=== PATIENT | male | born 1995 | race Caucasian/White ===

== ENCOUNTER 2022-01-29 22:52 | Emergency (ER) | payer SELFPAY ==
[2022-01-29 23:41] VITALS: BP 144/90; PULSE 84; RESP 16; TEMP 36.7; O2SAT 99; BMI 36.9
--- NOTE | 2022-01-30 | CT_ITS ---
PROCEDURE INFORMATION: Exam: CT Abdomen And Pelvis With Contrast Exam date and time: 01/30/2022 12:40 AM Age: 26 years old Clinical indication: Other: Gi bleeding TECHNIQUE: Imaging protocol: Computed tomography of the abdomen and pelvis with contrast. Radiation optimization: All CT scans at this facility use at least one of these dose optimization techniques: automated exposure control; mA and/or kV adjustment per patient size (includes targeted exams where dose is matched to clinical indication); or iterative reconstruction. Contrast material: ISOVUE; Contrast volume: 75 ml; Contrast route: IV; COMPARISON: No relevant prior studies available. FINDINGS: Liver: Hepatic steatosis. Gallbladder and bile ducts: Contracted gallbladder. Pancreas: Normal. No ductal dilation. Spleen: Normal. No splenomegaly. 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 Kidneys and ureters: Normal. No hydronephrosis. Stomach and bowel: Mild small bowel feces suggesting slow motility. Appendix: Unremarkable appendix. Intraperitoneal space: Unremarkable. No free air. No significant fluid collection. Vasculature: Unremarkable. No abdominal aortic aneurysm. Lymph nodes: Unremarkable. No enlarged lymph nodes. Urinary bladder: Unremarkable as visualized. Reproductive: Unremarkable as visualized. Bones/joints: Unremarkable. No acute fracture. Soft tissues: Unremarkable. IMPRESSION: 1. No acute findings. 2. Hepatic steatosis.
[2022-01-30 00:07] LABS: Microscopic, Urine URINE MICROSCOPIC (MICROSCOPIC)
[2022-01-30 00:08] LABS: Basophils # 0.1 K/mm3 (0-0.2); Basophils % 0.8 % (0.1-2.0); Eosinophils # 0.3 K/mm3 (0.0-0.4); Eosinophils % 4.1 % (0.1-12.0); Hematocrit 47.4 % (42.0-52.0); Hemoglobin 14.9 g/dL (14.1-18.0); Lymphocytes # 2.1 K/mm3 (0.7-4.5); Lymphocytes % 29.3 % (10-50); Mean Corpuscular HGB Conc 31.5 g/dL (31.8-35.4); Mean Corpuscular Hemoglobin 29.2 pg (27.0-31.2); Mean Corpuscular Volume 92.8 fl (80-94); Mean Platelet Volume 7.7 fl (7.4-10.4); Monocytes # 0.6 K/mm3 (0.1-1.0); Monocytes % 7.9 % (1.7-9.3); Neutrophils # 4.1 K/mm3 (1.8-7.8); Neutrophils % 57.9 % (37.0-80.0); Platelet Count 317 K/mm3 (142-424); Red Blood Count 5.11 M/mm3 (4.60-6.20); Red Cell Distribution Width 13.6 % (11.5-17.5); White Blood Count 7.1 K/mm3 (4.8-10.8)
[2022-01-30 00:15] LABS: Appearance,Urine CLEAR (Clear); Bilirubin,Urine Negative (Negative); Blood, Urine Negative (Negative); Color,Urine YELLOW (Yellow); Glucose,Urine (UA) Negative (Negative); Ketones,Urine Negative (Negative); Leukocyte Esterase,Urine Negative (Negative); Nitrate,Urine Negative (Negative); Protein,Urine Negative (Negative); Specific Gravity, Urine 1.025 (1.005-1.030); Urobilinogen,Urine 0.2 EU/dl (0.2)
[2022-01-30 00:26] LABS: Occult Blood,Stool Positive (Negative)
[2022-01-30 00:35] LABS: Mucus,Urine 1+ /lpf; WBC,Urine Occasional #/hpf (0-3)
[2022-01-30 00:36] LABS: Squamous Epithelial Cell,Urine Occasional #/hpf (0-5)
[2022-01-30 00:49] LABS: Alanine Aminotransferase 47 U/L (12-78); Albumin Level 4.4 g/dl (3.5-5.0); Albumin/Globulin Ratio 1.5 (1.1-1.8); Alkaline Phosphatase 83 U/L (38-126); Anion Gap 13.9 mEq/L (5-15); Aspartate Amino Transferase 33 U/L (17-59); Blood Urea Nitrogen 12 mg/dl (9-20); Calcium 9.1 mg/dl (8.4-10.2); Carbon Dioxide 26 mmol/L (22.0-30.0); Chloride 103 mmol/L (98-107); Creatinine Clearance Estimated 238 mL/min (50-200); Estimated Glomerular Filt Rate 117 ml/min (>60); GFR (African American) 141 ML/MIN (>60); Glucose 131 mg/dl (74-100); Potassium 3.9 mmoL/L (3.5-5.1); Sodium 139 mmol/L (136-145); Total Protein,Serum 7.4 g/dl (6.3-8.2)
[2022-01-30 00:50] LABS: Bilirubin,Total < 0.1 mg/dl (0.2-1.3)
[2022-01-30 01:01] VITALS: BP 112/65; PULSE 77; RESP 16; O2SAT 97
[2022-01-30 01:31] VITALS: BP 122/66; PULSE 72; RESP 16; O2SAT 97
--- NOTE | 2022-01-30 01:50 | PC.NURSE ---
Pt updated on POC. NO needs or complaints voiced.
[2022-01-30 02:01] VITALS: BP 130/69; PULSE 82; O2SAT 96
--- NOTE | 2022-01-30 02:21 | [facility].EDABDPAI ---
Discharge Plan Disposition Patient Disposition: Home, Self-Care Chief Complaint: Abdominal Pain Prescriptions Prescriptions: New cephalexin [cephalexin] 500 mg capsule 500 mg PO TID Qty: 30 0RF Referrals Referrals: Provider,Referral, MD [Primary Care Provider] - Enter time for follow up Clinical Impressions Clinical Impression: Acute hemorrhoid Instructions Patient Instructions: Hemorrhoids, DI for Acute Abdominal Pain Discharge ED Provider: Kameron Vides Abdominal Pain HPI General Chief Complaint: Abdominal Pain Stated Complaint: Dark red blood and clots in stool X's 3 days Time Seen by Provider: 01/30/22 02:21 Mode of Arrival: Ambulatory Source of Information: Patient and Medical Record Limitations: No Limitations Description of Symptoms (Recalled from ER Triage Doc. by RN): PT REPORTS BLOODY STOOLS X 3 DAYS History of Present Illness HPI narrative: painful rectal area with brrb - no fever complaint: abdominal pain Onset (ago): day(s) Consistency: intermittent Severity: moderate Quality: sharp Associated symptoms: hematochezia Related Data Previous Rx's Medication Instructions Recorded cephalexin 500 mg capsule 500 mg PO TID #30 caps 01/30/22 Allergies Allergy/AdvReac Type Severity Reaction Status Date / Time No Known Allergies Allergy Verified 01/29/22 23:51 PFSH PFSH Social History Smoking Status: Current some day smoker alcohol intake: never current occupational status: employed ROS Obtained: Yes Systems reviewed as appropriate & no additional complaints except as documented Gastrointestinal Gastrointestingal: Reports as per HPI and hematochezia Physical Exam General General appearance: alert Head Head exam: normocephalic Eye Eye exam: Present PERRL and EOMI ENT ENT exam: Present normal oropharynx Neck Neck exam: Present normal inspection and full ROM Respiratory Respiratory exam: Present normal lung sounds bilaterally Cardiovascular Cardiovascular exam: Present regular rate Abdominal Exam Abdominal exam: Present soft and tenderness Rectal Exam Rectal exam: Present heme (+) stool, hemorrhoids and other (some cryptitis ) Neurological Exam Neurological exam: Present alert, oriented X3 and CN II-XII intact Psychiatric Psychiatric exam: Present normal affect Skin Skin exam: Absent rash Medical Decision Making Medical Records Medical records reviewed: Yes I reviewed the patient's medical records. Alfred Inquiry Pt receiving controlled substance: No Vital Signs: 01/29/22 23:41 01/30/22 01:01 01/30/22 01:31 Temperature 98.1 F Temperature Source Oral Pulse Rate 77 72 Pulse Rate [Left Radial] 84 Respiratory Rate 16 16 16 Blood Pressure 112/65 122/66 Blood Pressure [Right Arm] 144/90 H Blood Pressure Mean 81 85 Blood Pressure Mean [Right Arm] 108 Blood Pressure Source [Right Arm] Automatic Cuff Blood Pressure Position [Right Arm] Sitting 02 Sat by Pulse Oximetry 99 97 97 Oxygen Delivery Method Room Air 01/30/22 02:01 01/30/22 02:34 01/30/22 02:34 Temperature 98.1 F Temperature Source Oral Pulse Rate 82 83 Pulse Rate [Left Radial] Respiratory Rate 16 Blood Pressure 130/69 119/74 Blood Pressure [Right Arm] Blood Pressure Mean 86 Blood Pressure Mean [Right Arm] Blood Pressure Source [Right Arm] Blood Pressure Position [Right Arm] 02 Sat by Pulse Oximetry 96 Oxygen Delivery Method Room Air Room Air Lab Data Lab results reviewed: Yes I reviewed the patient's lab results. Lab Results 01/29/22 23:57: WBC 7.1, RBC 5.11, Hgb 14.9, Hct 47.4, MCV 92.8, MCH 29.2, MCHC 31.5 L, RDW 13.6, Plt Count 317, MPV 7.7, Neut % (Auto) 57.9, Lymph % (Auto) 29.3, Vernon % (Auto) 7.9, Eos % (Auto) 4.1, Baso % (Auto) 0.8, Neut # (Auto) 4.1, Lymph # (Auto) 2.1, Vernon # (Auto) 0.6, Eos # (Auto) 0.3, Baso # (Auto) 0.1 01/29/22 23:57: Sodium 139, Potassium 3.9, Chloride 103, Carbon Dioxide 26, Anion Gap 13.9, BUN
[2022-01-30 02:34] VITALS: BP 119/74; PULSE 83; RESP 16; TEMP 36.7; O2SAT 99
== END 2022-01-30 02:42 | disposition home or self-care (01) ==
PROVIDERS: Emergency Provider Emergency Medicine
DX: K64.9 Unspecified hemorrhoids (principal); Z72.0 Tobacco use; K62.5 Hemorrhage of anus and rectum
CPT/HCPCS: 74177; 80053; 81001; 82272; 85025; 96365; 99284; G0328; Q9967